=== PATIENT | female | born 1960 | race Caucasian/White ===

== ENCOUNTER → 2018-09-16 10:21 | Outpatient (CLI) | payer MEDICARE, MEDICAID, SELFPAY ==
--- NOTE | 2018-09-16 | DI.CT.S_ITS ---
PROCEDURE: CT CERVICAL SPINE WO CON INDICATIONS: OSTEOARTHRITIS OF SPINE WITH RADICULOPATHY CERVICAL TECHNIQUE: Noncontrast 3 mm thick sections acquired from the skull base to the T4 level. Sagittal and coronal reformats were then constructed. For radiation dose reduction, the following was used: automated exposure control, adjustment of mA and/or kV according to patient size. COMPARISON: [facility], RG, MRI C-SPINE W/O CONTRAST, 06/14/2003, 8:20. [facility], , CERVICAL SPINE INTERLAMINAR, 05/13/2018, 10:24. FINDINGS: Image quality: Excellent. There is straightening of normal cervical curvature. There is trace retrolisthesis of C4 on C5, trace anterolisthesis of C5 on C6. Moderate degenerative disc space narrowing is present C4-5, C5-6 and C6-7. Anterior osteophytes are present from C4-T2. No visualized fractures. Minimal disc bulge is present at C3-4, mild C4-C5, C5-6, C6-7. Mild to moderate spinal stenosis is present at C4-5, moderate at C5-6, mild to moderate C6-7. Minimal right and moderate left foraminal narrowing C3-4, moderate to severe bilateral C4-C5, mild to moderate bilateral C5-6, mild left and mild to moderate right C6-7. Uncovertebral hypertrophy is present. The right thyroid lobe demonstrates areas of low attenuation as well as calcification. No priors are available for comparison. IMPRESSION: 1. Multilevel disc space narrowing. 2. Multiple spinal stenosis most notable at C5-6 secondary to disc bulge. 3. Multilevel foraminal narrowing most prominent at C4-5 secondary to uncovertebral arthropathy. Dictated by: Rachel Hilliard M.D. on 09/16/2018 at 11:36 Approved by: Rachel Hilliard M.D. on 09/16/2018 at 11:49
== END ==
PROVIDERS: PCP Family Medicine; Visit Provider Orthopaedic Surgery Orthopaedic Surgery of the Spine
DX: M47.9 Spondylosis, unspecified (principal); M54.12 Radiculopathy, cervical region
CPT/HCPCS: 72125

== ENCOUNTER → 2018-10-06 14:52 | Outpatient (CLI) | payer MEDICARE, MEDICAID, SELFPAY ==
[2018-10-06 15:53] LABS: Add Manual Diff / Slide Review NO; Basophils Absolute Auto 0 /uL (0-100); Basophils Percent Auto 0.5 % (0-2); Eosinophils Absolute Auto 0 /uL (0-450); Eosinophils Percent Auto 0.7 % (2-4); Hematocrit 41.7 % (36-46); Hemoglobin 13.8 g/dL (12.0-16.0); Lymphocytes Absolute Auto 1300 /uL (1100-4500); Lymphocytes Percent Auto 23.6 % (25-40); Mean Corpuscular HGB Conc 33.2 % (30-36); Mean Corpuscular Hemoglobin 29.2 PG (26-34); Mean Corpuscular Volume 88.1 fL (80-100); Monocytes Absolute Auto 500 /uL (0-900); Monocytes Percent Auto 9.9 % (3-14); Neutrophils Absolute Auto 3500 /uL (1500-7000); Neutrophils Percent Auto 65.3 % (50-75); Platelet Count 288 X10^3/uL (150-400); Red Blood Cell Count 4.73 X10^6/uL (4.0-5.2); Red Cell Distribution Width 14.6 % (11.6-14.8); White Blood Cell Count 5.4 X10^3/uL (4.5-11.0)
[2018-10-06 17:07] LABS: Blood Urea Nitrogen 26 mg/dL (7-17); Carbon Dioxide 30 mmol/L (22-32); Chloride 98 mmol/L (98-107); Estimated Glomerular Filt Rate 42.2 mL/min (>60); Glucose 126 mg/dL (70-100); HEMOLYSIS < 15 (0-50); Potassium 4.3 mmol/L (3.4-5.1); Sodium 142 mmol/L (137-145)
== END ==
PROVIDERS: Family Provider Family Medicine; PCP Family Medicine; Visit Provider Orthopaedic Surgery Orthopaedic Surgery of the Spine
DX: Z01.818 Encounter for other preprocedural examination (principal); Z01.812 Encounter for preprocedural laboratory examination
CPT/HCPCS: 36415; 80048; 85025; 93005; 93010

== ENCOUNTER 2018-10-18 10:59 | Inpatient (IN) | payer MEDICARE, MEDICAID, SELFPAY ==
[2018-10-13 08:43] VITALS: BMI 45.1
[2018-10-18] VITALS (18 sets, daily range): BP systolic 130–156; BP diastolic 65–93; PULSE 76–95; RESP 7–18; TEMP 36.2–36.9; O2SAT 90–96; BMI 45.1
--- NOTE | 2018-10-18 | DI.RAD.S_ITS ---
PROCEDURE: XR CERVICAL SPINE 2V OR 3V INDICATIONS: C4-5 C5-6 .C6-7 ACDF TECHNIQUE: Multiple intraoperative fluoroscopic view(s) of the cervical spine were acquired. COMPARISON: None. FINDINGS: Bones: Multiple spot fluoroscopic images demonstrate anterior fusion and discectomy at C4-C6. IMPRESSION: ACDF from C4-C6. Dictated by: Bernie Cartagena M.D. on 10/18/2018 at 16:08 Approved by: Bernie Cartagena M.D. on 10/18/2018 at 16:09
[2018-10-18] MEDS: LACTATED RINGERS 1,000 ML 42 ML IV ×2 (12:18→15:08)
[2018-10-18] MEDS: CEFAZOLIN 2 GM/100 ML FROZ.PIGGY IV ×2 (13:08→21:35)
--- NOTE | 2018-10-18 14:02 | SUR.OPER ---
Supine, head on gel donut. Arms padded with gel pads, tucked at sides, towel roll under shoulders. Safety belt at thigh. Legs uncrossed. Pillow under knees. Cloth tape from bilateral shoulder to end of bed.
--- NOTE | 2018-10-18 15:57 | PM.OP.1 ---
Operative Date/Time/Diagnoses Date of procedure: 10/18/18 Time of procedure: 12:57 Pre-op diagnosis: 1. C4-5, C5-6 spinal stenosis 2. C4-5, C5-6 spondylosis with radiculopathy Post-op diagnosis: same Procedure & Clinicians Procedure: 1. C4-5, C5-6 anterior cervical diskectomy and fusion 2. C4-5, C5-6 anterior interbody cage placement 3. C4-5, C5-6 anterior instrumentation with plate and screw placement in C4, C5-C6 vertebrae 4. Utilization of microsurgical technique and operating microscope Same procedure as scheduled: Yes Indications: Patient has been having chronic neck pain and worsening cervical radiculopathy. Patient failed multiple conservative management with worsening pain weakness and numbness in her upper extremity. Patient has been having difficulty performing activity of daily living. After discussing risks benefits of treatment options, patient elected proceed with surgery. Surgeon: Eleazar Lester Explosive Ordnance Manager: Caity Guerrero'Brien Click Yes if Unassisted: No Anesthesia Type: General Operative Notes Closure Type: primary Specimen(s): none sent Implants & Drains: GLobus extend plate, Peek cage Applied: catheter Estimated Blood Loss (mL): 10 Blood products transfused: none Procedure in detail: Patient was seen in the preoperative area. Risks and benefits of the surgery was discussed with the patient. Operative consent was obtained and placed in the chart. Patient was then taken to the operative room. Prophylactic antibiotic was given less than 0.5 hr prior to skin incision. General anesthesia was administered. Patient was placed into a supine position on her radiolucent table. Bilateral shoulders were taped down to allow proper C-arm imaging. Anterior cervical area was prepped and draped in a sterile fashion. Time-out was performed at this time. Using lateral C-arm imaging, the level between C4 and C6 was identified and marked on patient's neck. A oblique incision from midline towards medial border of sternocleidomastoid muscle was made. The platysma muscle was incised in line with skin incision. Metzenbaum scissor was used to develop the plane between the medial border of sternocleidomastoid d and the strap muscles medially. The carotid sheath and its contents were identified and protected behind the hand-held retractor during the entire case. The plane between the carotid sheath and strap muscles was developed with Metzenbaum scissors. Dissection was made down to the level of the anterior cervical fascia. Longus colli muscle was incised on the anterior aspect of vertebral bodies bilaterally from C4-6. Spinal needle was placed into the C5-6 disc space and confirmed with lateral C-arm imaging. Using microsurgical technique and operative microscope, anterior cervical diskectomy was performed at C4-5 and C5-6 level. This was done by removing the disc material, removing the anterior and posterior osteophytes posterior longitudinal ligaments along with performing bilateral foraminotomies at both levels. Patient was found to have severe central and foraminal stenosis at both levels. Patient's stenosis was fully decompressed after decompression was completed. After the diskectomy was completed, 2 anterior interbody cages were obtained. The cages were packed with globus via cell bone grafting material. One cage each along with the bone grafting material was then packed into the interbody spaces from C4-5, C5-6 with one cage into each interbody level. After the cages were placed, the anterior cervical plate was stabilized to the C4-C6 vertebrae using 2 screws at each each level. Total 6 screws were placed. After confirming placement of the hardware with AP and lateral C-arm imaging, the screws were locked into the plate using the locking mechanism and torque limiting screwdriver. After the hardware was placed and confirmed with AP and lateral C-arm imaging, the wound was irrigated with sterile normal saline. The platysma muscle and the subcutaneous tissue was closed with 2-0 Vicryl. The skin was closed with 4-0 Monocryl and Steri-Strips. Patient tolerated the procedure well. Patient was transferred recovery room in stable condition. There were no complications. Complications: none Condition: stable Disposition: PACU Plan for aftercare: Admit to inpatient hospital
[2018-10-18] MEDS: HYDROMORPHONE 2 MG INJ 0.5 MG IV ×2 (16:18→16:37)
[2018-10-18] MEDS: OXYCODONE IR 5 MG TABLET PO (16:42)
[2018-10-18] MEDS: SODIUM CHLORIDE 0.9% 1,000 ML 100 ML IV (17:55)
--- NOTE | 2018-10-18 18:59 | PC.NURSE ---
Kasandra shift note: 1705: Patient admitted to AC room 220 from PACU S/P ACDF by Dr. Lester. Patient awake, alert, and pleasant. Soft cervical collar in place, 4 x 4 dressing to left anterior neck CDI, secured with tegaderm. No c/o pain, ice pack to anterior neck. SCDs in place. Cont. on O2 per NC at 2L, 93%. Tolerating regular diet, no N/V. Daughter at bedside providing supportive care. Patient with left sided weakness which is baseline from MS. Good hand dog or animal sitter. Mild numbness to left fingertips, improving. Oriented to room, environment, and plan of care. Call light within reach.
[2018-10-18] MEDS: DOCUSATE 100 MG CAPSULE PO (21:34)
[2018-10-18] MEDS: FUROSEMIDE 20 MG TABLET PO (21:34)
[2018-10-18] MEDS: TRAZODONE 100 MG TABLET PO (21:34)
[2018-10-18] MEDS: SENNOSIDES 8.6 MG TABLET 17.2 MG PO (21:35)
[2018-10-19 03:15] VITALS: BP 141/84; PULSE 94; RESP 18; TEMP 36.7; O2SAT 92
[2018-10-19] MEDS: SODIUM CHLORIDE 0.9% 1,000 ML 100 ML IV (04:19)
[2018-10-19] MEDS: CEFAZOLIN 2 GM/100 ML FROZ.PIGGY IV (05:04)
[2018-10-19] MEDS: LEVOTHYROXINE 100 MCG TABLET PO (05:17)
[2018-10-19] MEDS: LEVOTHYROXINE 75 MCG TABLET PO (05:17)
[2018-10-19 05:51] LABS: Hematocrit 38.8 % (36-46)
[2018-10-19 08:00] VITALS: BP 145/83; PULSE 91; RESP 16; TEMP 36.6; O2SAT 97
--- NOTE | 2018-10-19 08:04 | PC.NURSE ---
Addendum entered by Abby Natarajan R.N. 10/19/18 12:41: dc - after arias dc'd this am, pt voided 400ml at lunch, cleared by phys therapy, bernabe dc'd, reviewed dc instructions with pt and dtr, script provided, packed belongings, including bag, glasses, clothing and own fww, trsf to wc and therapist occupational escorted to dtr's car. Original Note: Addendum entered by Abby Natarajan R.N. 10/19/18 10:37: PAIN/MS/ - given 650mg po tylenol after breakfast, up with phys therapy, states no dizziness, discussed plan to dc later today, arias balloon deflated and dc'd w/o difficulty, hat in br, call light available. Original Note: AM NOTE - awake, states mild discomfort, 1 on scale 0/10, l neck dsg cdi, wearing soft cervical collar, 02 sat 93% ra, cpap off, hr 84, denies nausea, + bt, hx numbness hands has improved, some residual numbness r hand w/slightly weaker service center specialist, arias w/clear, yellow urine, plan to mobilize this am with phys and occ therapy
--- NOTE | 2018-10-19 08:07 | PM.DS.1 ---
History of Present Illness Date Patient Seen: 10/19/18 Time Patient Seen: 08:08 Chief complaint: [id number] Narrative: Hospital day 2, postop day 1 following C4-5, C5-6 ACDF, cage, anterior plate by Dr. Lester. Patient states she is doing well. Has had minimal discomfort. Her preoperative left arm numbness and weakness has been improving since surgery. She notes some slight numbness to the tip of her left fingers. No significant swallowing problem. She has not been out of bed yet. No PT yet. Does have Mcclellan catheter in place. Discharge Providers Date of admission: 10/18/18 10:59 Primary care physician: Alec Colmenares MD Consults: 10/18/18 17:33 Consult to Occupational Therapy Evaluate & Treat Comment: Physician Instructions: Evaluate and treat Consult to Physical Therapy Evaluate & Treat Comment: Physician Instructions: Evaluate and Treat Discharge provider: Huseyin Vance PA-C Discharge Date: 10/19/18 Summary Discharge Diagnosis: 1. Status post C4-5, C5-6 ACDF, cage, anterior plate. 2. Morbid obesity Hospital Course: Patient brought to hospital on 10/18/2018 for above noted surgery. She remained stable postoperatively. Had noticeable improvement in neck pain and left arm symptoms on postop day 1. Ready for discharge home on postop day 1. Status at Discharge Cognitive/behavioral status at discharge: Alert, oriented no acute distress Functional status at discharge: uses cane/walker Overall status at discharge: patient is progressing back to baseline Time Spent with Patient Less than 30 minutes Exam Vital Signs (past 8 hours): - 10/19/18 03:15 Temperature 98.1 F Pulse Rate 94 H Respiratory Rate 18 Blood Pressure 141/84 H Pulse Oximetry 92 Oxygen Delivery Method CPAP Oxygen Flow Rate 0 Narrative Exam Narrative: Neck. Soft collar in place. Dressing to left anterior neck is dry without drainage or inflammation. Arms. Agricultural Mechanic strong and equal. Pulses and sensation symmetrical. Elbow flexion, extension and shoulder AB duction strong and equal. Objective Labs Result Diagrams: 10/19/18 05:10 Labs: Laboratory Results - last 24 hr 10/19/18 05:10 Hgb 13.0 Hct 38.8 Discharge Plan Discharge Plan Patient Disposition: Home Discharge comment: Discharged home today after Mcclellan catheter DC patient able to void and patient cleared by PT. Discharge Med Rec/Prescriptions Prescriptions: New acetaminophen 325 mg Tablet 650 mg PO Q6HR PRN (Reason: Pain, Mild (1-3)) Qty: 30 RF: 0 hydrocodone-acetaminophen [[place]] 5-325 mg tablet 1 tab PO Q4-6H PRN (Reason: pain) Qty: 30 RF: 0 Continue multivitamin [Multiple Vitamins] 1 EACH tablet 1 tab PO QDAY Qty: 0 RF: 0 levothyroxine 175 mcg Tablet 175 mcg PO DAILY Qty: 0 RF: 0 VITAMIN B COMPLEX ([id number]) 1 cap PO Q DAY Qty: 0 RF: 0 cholecalciferol (vitamin D3) 5,000 UNIT capsule 5,000 unit PO QDAY Qty: 0 RF: 0 [FISH OIL] 1 cap PO QDAY Qty: 0 RF: 0 [PROBIOTIC] 1 tab PO QDAY Qty: 0 RF: 0 lisinopril 20 MG tablet 20 mg PO QAM Qty: 0 RF: 0 metoprolol succinate 50 MG tablet extended release 24 hr 50 mg PO QAM Qty: 0 RF: 0 trazodone 100 MG tablet 100 mg PO HS Qty: 30 RF: 0 diclofenac sodium 75 mg Tablet,Delayed Release (Dr/Ec) 75 mg PO BID RF: 0 furosemide 20 mg Tablet 20 mg PO TID RF: 0 albuterol sulfate 90 mcg/actuation Hfa Aerosol Inhaler 2 puff INHALATION Q6H PRN (Reason: sob) RF: 0 bupropion HCl 300 mg Tablet Extended Release 24 Hr 300 mg PO QAM RF: 0 diazepam 10 MG tablet 10 mg PO Q6HP PRN (Reason: Anxiety, CT scan/MRI) RF: 0 Provider Discharge Instructions Diet: Diet as Tolerated Activity: Ambulate as tolerated. Keep soft cervical collar on through the end of the week. Skin/Wound/Dressing Care Report to your healthcare provider any signs of infection, such as:: chills, fever, night sweats, increased pain, unusual drainage and unusual redness Discharge Data Primary Care Provider: Alec Colmenares Attending Provider: Eleazar Lester Admit Date/Time: 10/18/18 10:59
--- NOTE | 2018-10-19 08:12 | P.DS_ITS ---
History of Present Illness Date Patient Seen: 10/19/18 Time Patient Seen: 08:08 Chief complaint: [id number] Narrative: Hospital day 2, postop day 1 following C4-5, C5-6 ACDF, cage, anterior plate by Dr. Lester. Patient states she is doing well. Has had minimal discomfort. Her preoperative left arm numbness and weakness has been improving since surgery. She notes some slight numbness to the tip of her left fingers. No significant swallowing problem. She has not been out of bed yet. No PT yet. Does have Mcclellan catheter in place. Discharge Providers Date of admission: 10/18/18 10:59 Primary care physician: Alec Colmenares MD Consults: 10/18/18 17:33 Consult to Occupational Therapy Evaluate & Treat Comment: Physician Instructions: Evaluate and treat Consult to Physical Therapy Evaluate & Treat Comment: Physician Instructions: Evaluate and Treat Discharge provider: Huseyin Vance PA-C Discharge Date: 10/19/18 Summary Discharge Diagnosis: 1. Status post C4-5, C5-6 ACDF, cage, anterior plate. 2. Morbid obesity Hospital Course: Patient brought to hospital on 10/18/2018 for above noted surgery. She remained stable postoperatively. Had noticeable improvement in neck pain and left arm symptoms on postop day 1. Ready for discharge home on postop day 1. Status at Discharge Cognitive/behavioral status at discharge: Alert, oriented no acute distress Functional status at discharge: uses cane/walker Overall status at discharge: patient is progressing back to baseline Time Spent with Patient Less than 30 minutes Exam Vital Signs (past 8 hours): - 10/19/18 03:15 Temperature 98.1 F Pulse Rate 94 H Respiratory Rate 18 Blood Pressure 141/84 H Pulse Oximetry 92 Oxygen Delivery Method CPAP Oxygen Flow Rate 0 Narrative Exam Narrative: Neck. Soft collar in place. Dressing to left anterior neck is dry without drainage or inflammation. Arms. Identification Technician strong and equal. Pulses and sensation symmetrical. Elbow flexion, extension and shoulder AB duction strong and equal. Objective Labs Result Diagrams: 10/19/18 05:10 Labs: Laboratory Results - last 24 hr 10/19/18 05:10 Hgb 13.0 Hct 38.8 Discharge Plan Discharge Plan Patient Disposition: Home Discharge comment: Discharged home today after Mcclellan catheter DC patient able to void and patient cleared by PT. Discharge Med Rec/Prescriptions Prescriptions: New acetaminophen 325 mg Tablet 650 mg PO Q6HR PRN (Reason: Pain, Mild (1-3)) Qty: 30 RF: 0 hydrocodone-acetaminophen [[place]] 5-325 mg tablet 1 tab PO Q4-6H PRN (Reason: pain) Qty: 30 RF: 0 Continue multivitamin [Multiple Vitamins] 1 EACH tablet 1 tab PO QDAY Qty: 0 RF: 0 levothyroxine 175 mcg Tablet 175 mcg PO DAILY Qty: 0 RF: 0 VITAMIN B COMPLEX ([id number]) 1 cap PO Q DAY Qty: 0 RF: 0 cholecalciferol (vitamin D3) 5,000 UNIT capsule 5,000 unit PO QDAY Qty: 0 RF: 0 [FISH OIL] 1 cap PO QDAY Qty: 0 RF: 0 [PROBIOTIC] 1 tab PO QDAY Qty: 0 RF: 0 lisinopril 20 MG tablet 20 mg PO QAM Qty: 0 RF: 0 metoprolol succinate 50 MG tablet extended release 24 hr 50 mg PO QAM Qty: 0 RF: 0 trazodone 100 MG tablet 100 mg PO HS Qty: 30 RF: 0 diclofenac sodium 75 mg Tablet,Delayed Release (Dr/Ec) 75 mg PO BID RF: 0 furosemide 20 mg Tablet 20 mg PO TID RF: 0 albuterol sulfate 90 mcg/actuation Hfa Aerosol Inhaler 2 puff INHALATION Q6H PRN (Reason: sob) RF: 0 bupropion HCl 300 mg Tablet Extended Release 24 Hr 300 mg PO QAM RF: 0 diazepam 10 MG tablet 10 mg PO Q6HP PRN (Reason: Anxiety, CT scan/MRI) RF: 0 Provider Discharge Instructions Diet: Diet as Tolerated Activity: Ambulate as tolerated. Keep soft cervical collar on through the end of the week. Skin/Wound/Dressing Care Report to your healthcare provider any signs of infection, such as:: chills, fever, night sweats, increased pain, unusual drainage and unusual redness Discharge Data Primary Care Provider: Alec Colmenares Attending Provider: Eleazar Lester Admit Date/Time: 10/18/18 10:59
[2018-10-19] MEDS: DOCUSATE 100 MG CAPSULE PO (09:08)
[2018-10-19] MEDS: FUROSEMIDE 20 MG TABLET PO (09:08)
[2018-10-19] MEDS: buPROPion XL 150 MG TAB 300 MG PO (09:08)
[2018-10-19] MEDS: ACETAMINOPHEN 325 MG TABLET 650 MG PO (09:09)
[2018-10-19] MEDS: METOPROLOL ER 50 MG TABLET PO (09:09)
[2018-10-19] MEDS: MULTIVITAMIN 1 TABLET 1 TAB PO (09:09)
[2018-10-19] MEDS: LISINOPRIL 20 MG TABLET PO (09:09)
--- NOTE | 2018-10-19 09:13 | OT.IP.EVAL ---
Current Diagnoses Spondylolisthesis, cervical region (10/18/18) Other spondylosis with radiculopathy, cervical region (10/18/18) Spinal stenosis, cervical region (10/18/18) Surgery Performed Operation Date: 10/18/18 13:15 Actual Procedures p C4-5,C5-6 ACDF w/Anterior Instru. - Eleazar Lester MD Past Medical History (Last Updated 10/13/18 @ 09:45 by Mitzy Daniels, RN) Chronic neck and back pain (Acute) DDD (degenerative disc disease) (Acute) Double vision (Acute) Easy bruisability (Acute) Eye muscle paralysis (Acute) Former smoker (Acute) GERD (gastroesophageal reflux disease) (Acute) HTN (hypertension) (Acute) Hypothyroid (Acute) Kidney stone (Acute) Mass of left thigh (Acute) Migraines (Acute) Numbness and tingling in both hands (Acute) Numbness and tingling of both feet (Acute) Right foot drop (Acute) Right shoulder pain (Acute) Risk for falls (Acute) FAHAD (stress urinary incontinence, female) (Acute) Sleep apnea treated with nocturnal BiPAP (Acute) Surgical History (Last Updated 10/13/18 @ 09:45 by Mitzy Daniels, JACY) History of lumbar spinal fusion (Acute 01/09/18) Hx of dilation and curettage (Acute) Hx of foot surgery (Acute) Hx of gastric bypass (Acute ~2002) Hx of hernia repair (Acute) Hx of laminectomy (Acute ~1987) Hx of shoulder surgery (Acute) Hx of total hysterectomy (Acute) Occupational Therapy Inpatient Evaluation/Re-Eval M1 PT/OT-IP Prior Functional Status Start: 10/19/18 14:43 Freq: NEEDED Status: Active Protocol: Document 10/19/18 09:13 RENARD (Rec: 10/19/18 16:48 PJM [id number]) Medical Review Prior Functional Status Medical History Reviewed Yes Diet/Fluid Consistency Regular Communication WNL Mobility and Gait Pt stated that she is modified independent with all mobilities and ambulation using 4WW. Activities of Daily Living and IADL's Pt lives alone and is independent with basic self care. Her daughter lives next door and assists pt with grocery shopping, scientific advisor and most driving. Pt uses electric cart in grocery store. Prior Functional Level (Other details) Pt has friends who can also assist PRN. Social History Household Members none Living Arrangements House Number of Floors (Floors) One Floor Number of Stairs To Enter/Railing? ramp to enter Home Environment Standard Height Toilet Walk in Shower Ramp Home Equipment Four Wheel Walker Raised Toilet Seat Without Armrests Shower Seat without Backrest Long Handled Sponge Long Handled Shoe Horn Education Coordinator Sock Aid Lift Recliner Grab Bars In Shower Additional Social History Comment Pt is on disability due to MS. Pt also has dressing stick. Pt stands to shower due to very small shower stall. M2 OT-IP Current Condition Start: 10/19/18 14:43 Freq: Status: Active Protocol: Document 10/19/18 09:13 PJM (Rec: 10/19/18 16:48 PJM [id number]) Occupational Therapy Current Condition Current Condition Evaluation Date 10/19/18 Treatment Diagnosis decreased self care s/p C4-6 ACDF Diagnosis Onset Date 10/18/18 Post Operative Precautions Cervical Spine Precautions Soft Collar for Comfort Soft Collar at all Times Rigid Collar No Heavy Lifting Log Roll M3 OT- IP Subjective and Pain Start: 10/19/18 14:43 Freq: Status: Active Protocol: Document 10/19/18 09:13 PJM (Rec: 10/19/18 16:48 PJ [id number]) OT- Subjective Occupational Therapy Visit Type Type Initial Evaluation Visit Start Time 08:40 Visit Stop Time 09:13 Notes Pt familiar with adapted self care techniques and lower body dressing equipt from previous back surgery with SNF stay. Occupational Therapy Visit Comments Patient Comments I feet great. When can I get my catheter out so I can go home? Patient/Caregiver Goals to go home today, to have improved sensation and strength in L hand OT Pain Assessment Pain When Pain Assessed After Treatment Pain Present Pain Present Denied Pain M4 OT- IP ADL's Start: 10/19/18 14:43 Freq: Status: Active Protocol: Document 10/19/18 09:13 PJM (Rec: 10/19/18 16:48 PJM [id number]) OT [id number] General Evaluation Self-Feeding Ability Independent Comments OT Self-Feeding Comments pt denies swallowing deficits OT ADL-Grooming General Evaluation Grooming Ability Independent Comments OT Grooming Comments standing at sink with 4WW after education re: body mechanics OT ADL-Oral Care General Eval Oral Care Ability Independent Comments Oral Care Comments standing at sink with 4WW after education re: body mechanics OT ADL-Dressing General Eval Upper Body Dressing Ability Independent Lower Body Dressing Ability Independent Areas Needing Assistance Pull-Over Shirt Underpants/Brief Pants/Shorts Socks Shoes Assistive Devices Dressing Assistive Devices Dressing Stick Long Handled Shoe Horn Education Coordinator Sock Aid Velcro Comments OT Dressing Comments Pt familiar with lower body dressing techniques and has all necessary AED from previous rehab stay. Pt wears knee high compression sock on R LE OT ADL-Toileting General Evaluation Toileting Ability Independent OT ADL-Bathing Comments OT Bathing Comments pt declines to shower here; she plans to sponge bath and use shampoo caps she purchased on line until first post op MD visit M5 OT- IP IADL's Start: 10/19/18 14:43 Freq: Status: Active Protocol: Document 10/19/18 09:13 PJM (Rec: 10/19/18 16:48 PJ [id number]) OT-Instrumental Activities of Daily Living Deficits IADL Deficits Identified Deficits Home Safety Awareness Awareness of Need for Assistance at Home Good Awareness Ability to Problem Solve Emergency Able to Problem Solve Situations Medication Management Medication Management No Deficits Identified Money Management Money Management No Deficits Identified Meal Preparation Meal Preparation Caregiver Provides Assist Meal Preparation Comments Daughter can assist PRN, but pt prepared frozen meals prior to surgery Director Multimedia Director Multimedia Caregiver Provides Assist Director Multimedia Comments daughter to assist PRN Driving Driving Comments daughter to assist PRN M6 OT- IP Functional Cognition Start: 10/19/18 14:43 Freq: Status: Active Protocol: Document 10/19/18 09:13 PJM (Rec: 10/19/18 16:48 PJ [id number]) Cognitive Factors Limiting Selfcare Function Cognitive Ability Level of Alertness Alert Patient Orientation Name Age Birthday Month Date Year Day of Week Place Situation Attention Span Ability Capable of Focused Attention Capable of Sustained Attention Ability to Follow Commands Able to Follow One Step Commands Able to Follow Multi-Step Commands Memory Description No Deficits Noted Safety Awareness No Deficits Noted Problem Solving Ability No deficits Noted Executive Function Ability No Deficits Noted OT- Vision and Hearing OT- Hearing Assessment OT- Hearing Assessment WFL OT- Vision Assessment Visual Acuity WFL Glasses All The Time Vision Assessment Comments Pt denies any recent vision changes. M7 OT- IP Mobility and Balance Start: 10/19/18 14:43 Freq: Status: Active Protocol: Document 10/19/18 09:13 PJM (Rec: 10/19/18 16:48 PJ [id number]) OT- Bed Mobility Assessment Rolling Level of Assistance Standby Assistance Supine to Sit Supine to Sit Assist Minimal Assistance Scooting Scooting to Edge of Bed Independent OT-Transfer Assessment Sit to and From Stand Sit to and from Stand Standby Assistance 1 Person Assistance Transfers Transfer Ability Standby Assistance 1 Person Assistance Technique Transfer Destination Chair Devices Transfer Assistive Devices Gait Belt 4 Wheeled Walker Comments Mobility Comments Pt plans to sleep in recliner initially. Note she has bed rail on her bed at home. OT- Gait Assessment Comments Gait Ability Comments see P.T. notes OT- Balance Assessment Sitting Balance and Reactions Static Sitting Balance Ability Good Dynamic Sitting Balance Ability Good Standing Balance and Reactions Static Standing Balance Ability Good Dynamic Standing Balance Ability Good M8 OT- IP Objective Assessments Start: 10/19/18 14:43 Freq: Status: Active Protocol: Document 10/19/18 09:13 PJM (Rec: 10/19/18 16:48 PJ [id number]) OT Gross Range of Motion Upper Extremity Range of Motion Assessment Within Functional Limits OT Strength Upper Extremity Strength Assessment Within Functional Limits Hand Delinquent Tax Collector Assistant Strength Hand Dominance Right Comments Strength Comments Pt feels B hands are stronger since surgery. OT- Coordination Assessment Comments Coordination Comments BUE WFL OT-Muscle Tone Assessment Muscle Tone WNL Yes OT Sensation Assessment Comments Summary Comments Pt has had long standing L hand numbness which has improved since surgery per pt. M9 OT- IP Assessment and Plan Start: 10/19/18 14:43 Freq: Status: Active Protocol: Document 10/19/18 09:13 PJM (Rec: 10/19/18 16:48 [facility] [id number]) OT Summary Assessment and Plan Potential Rehabilitation Potential Good Analytic Complexity at Evaluation Low Summary Progress Towards Goals Safe For Discharge Goals Met Assessment Summary Low complexity OT assessment and all OT education completed in one visit re: C spine precautions, adapted ADL techniques and car transfers. Pt has no c/o pain today and appears close to baseline level of function with adapted self care skills. She is having min difficulty getting out of unfamiliar bed here, but plans to sleep in recliner at home. Anticipate pt will d/c home today with intermittent assist from daughter and friends when medically stable and clears P.T. Goals Grooming Goal Independent Dressing Goal Independent Dressing Stick Elastic Shoe Laces Long Handled Shoe Horn Education Coordinator Sock Aid Velcro Toileting Goal Independent Toilet Transfer Goal Independent Patient/Caregiver Education Goal Demonstrate Post-Op Precautions Days to Meet Goals 1 Frequency of Treatment Frequency Of Treatment Discharge Treatment Plan Other Treatment Recommendations and Next No further OT services needed Treatment Focus Discharge Recommendations OT Discharge Recommendations Home with Assistance Home Equipment Needs none
--- NOTE | 2018-10-19 10:13 | PT.IIE ---
Current Diagnoses Spondylolisthesis, cervical region (10/18/18) Other spondylosis with radiculopathy, cervical region (10/18/18) Spinal stenosis, cervical region (10/18/18) Surgery Performed Operation Date: 10/18/18 13:15 Actual Procedures p C4-5,C5-6 ACDF w/Anterior Instru. - Eleazar Lester MD Surgical History (Last Updated 10/13/18 @ 09:45 by Mitzy Daniels, RN) History of lumbar spinal fusion (Acute 01/09/18) Hx of dilation and curettage (Acute) Hx of foot surgery (Acute) Hx of gastric bypass (Acute ~2002) Hx of hernia repair (Acute) Hx of laminectomy (Acute ~1987) Hx of shoulder surgery (Acute) Hx of total hysterectomy (Acute) Medical History (Last Updated 10/13/18 @ 09:45 by Mitzy Daniels RN) Chronic neck and back pain (Acute) DDD (degenerative disc disease) (Acute) Double vision (Acute) Easy bruisability (Acute) Eye muscle paralysis (Acute) Former smoker (Acute) GERD (gastroesophageal reflux disease) (Acute) HTN (hypertension) (Acute) Hypothyroid (Acute) Kidney stone (Acute) Mass of left thigh (Acute) Migraines (Acute) Numbness and tingling in both hands (Acute) Numbness and tingling of both feet (Acute) Right foot drop (Acute) Right shoulder pain (Acute) Risk for falls (Acute) FAHAD (stress urinary incontinence, female) (Acute) Sleep apnea treated with nocturnal BiPAP (Acute) Physical Therapy Inpatient Evaluation/Re-Eval M1 PT/OT-IP Prior Functional Status Start: 10/19/18 12:41 Freq: NEEDED Status: Active Protocol: Document 10/19/18 10:13 AB (Rec: 10/19/18 12:51 AB [id number]) Medical Review Prior Functional Status Medical History Reviewed Yes Communication able to make needs known Mobility and Gait stated that she is modified independent with all mobilities and ambulation using 4WW Social History Household Members none Living Arrangements House Number of Floors (Floors) One Floor Number of Stairs To Enter/Railing? has a ramp to enter Home Environment High Toilet Home Equipment Four Wheel Walker Raised Toilet Seat Without Armrests Grab Bars In Shower Additional Social History Comment pt will have her daughter to assist her. daughter lives next door to her. pt has a warehouse and receiving supervisor shower and plans to just do sponge bathing at home until incision heals. Pt has a regular bed with rail on L side of bed M2 PT-IP Current Condition Start: 10/19/18 12:41 Freq: NEEDED Status: Active Protocol: Document 10/19/18 10:13 AB (Rec: 10/19/18 12:51 AB [id number]) Physical Therapy Current Condition Current Condition Evaluation Date 10/19/18 Treatment Diagnosis C4-5, 5-6 ACDF Onset Date 10/18/18 Precautions Cervical Spine Precautions Soft Collar for Comfort No Heavy Lifting Log Roll M3 PT-IP Subjective Start: 10/19/18 12:41 Freq: NEEDED Status: Active Protocol: Document 10/19/18 10:13 AB (Rec: 10/19/18 12:51 AB [id number]) Subjective Physical Therapy Visit Type Type Initial Evaluation Visit Start Time 10:13 Visit Stop Time 10:33 Total Visit Minutes 20 Number of STERILE TECH Visits 0 Physical Therapy Visit Comments Patient Comments pt stated that she is ready to go home Therapy Pain Assessment Pain When Pain Assessed At Rest Pain Present Pain Present Pain Reported Location Neck Intensity 2 Scale Used Numeric (1 - 10) Pain Management Techniques Timing of Activity with Medications M4 PT-IP Mobility and Gait Start: 10/19/18 12:41 Freq: NEEDED Status: Active Protocol: Document 10/19/18 10:13 AB (Rec: 10/19/18 12:51 AB [id number]) PT-Bed Mobility Assessment Rolling Type of Rolling Log Rolling Level of Assist Standby Assistance Supine to Sit Supine to Sit Standby Assistance Bedrails Sit to Supine Sit to Supine Standby Assistance Bedrails Scooting Scooting to Edge of Bed Standby Assistance PT-Transfer Assessment Sit to and From Stand Sit to and from Stand Standby Assistance 1 Person Assistance Use of Upper Extremities Equipment Transfer Assistive Device Gait Belt 4 Wheeled Walker Orthotic/Prosthetic Devices or Brace: Yes Transfers Transfer Destination Bed Transfer Technique Stand Step Pivot Transfer Ability Level of Assist Standby Assistance Use of Upper Extremities Gait Assessment Gait Gait Assistance Required: Standby Assistance Distance (Feet) 200 Able to Maintain Weight Bearing Status Yes During Gait Assistive Devices Assistive Device Gait Belt 4 Wheeled Walker Orthotic/Prosthetic Devices or Brace: No Gait Deviations General Gait Pattern Ataxic Decreased Stride Length Decreased Feet Clearance Wide Based Gait Factors Limiting Gait Function Factors Limiting Gait Function Decreased Activity Tolerance Decreased Strength Pain Poor Balance Poor Safety Awareness Comments Gait Comments pt has MS affecting standing balance and ambulation. pt with (+) L knee hyperextension PT-Balance Assessment Sitting Balance and Reactions Static Sitting Balance Ability Good Dynamic Sitting Balance Ability Good Standing Balance and Reactions Static Standing Balance Ability Fair Dynamic Standing Balance Ability Fair Device Used 4WW M5 PT-IP Objective Assessments Start: 10/19/18 12:41 Freq: NEEDED Status: Active Protocol: Document 10/19/18 10:13 AB (Rec: 10/19/18 12:51 AB [id number]) Orientation Orientation/Cognition Level of Alertness Alert Orientation Name Age Birthday Month Date Year Day of Week Place Situation Language Function Ability No Deficits Noted Safety Awareness Understands Safety Issues Gross Range of Motion Lower Extremity ROM Assessment Within Functional Limits Strength Lower Extremity Strength Assessment Bilaterally Impaired Knee 4-/5 M6 PT-IP Treatment Start: 10/19/18 12:41 Freq: NEEDED Status: Active Protocol: Document 10/19/18 10:13 AB (Rec: 10/19/18 12:51 AB [id number]) Physical Therapy Treatment Education Education Provided Safety Brace Education [place] Patient Caregiver Other Treatments Other Treatment Performed educated pt on management of soft collar and completed pt and caregiver training for collar management M7 PT-IP Assessment and Plan Start: 10/19/18 12:41 Freq: NEEDED Status: Active Protocol: Document 10/19/18 10:13 AB (Rec: 10/19/18 12:51 AB [id number]) PT Summary Assessment and Plan Potential Rehabilitation Potential Good Status of Condition at Evaluation Stable Summary Impairments Pain ROM Strength Balance Coordination Sensation Tone Cognition Bed Mobility Transfers Gait Activity Tolerance Assessment Summary pt requiring SBA with mobility and plans to go home with her daughter to assist her at home. Goals Bed Mobility Goal Independent Transfer Goal Independent Four Wheeled Walker Gait Goal Independent Four Wheel Walker Gait Distance 300 Days to Meet Goals 3 Frequency of Treatment Frequency Of Treatment Twice a Day Treatment Plan Physical Therapy Treatment Plan Bed Mobility Training Transfer Training Gait Training Therapeutic Exercise Balance Retraining Post Op Education Discharge Planning Hot or Cold Pack Neuromuscular Re-ed Coordination Retraining Manual Therapy Other Recommendations and Next Treatment ambulation Focus Recommendations To Nursing Amount of Assist Needed Standby Assistance Discharge Recommendations PT Discharge Recommendations Home with Assistance
[2018-10-19 12:00] VITALS: BP 137/73; PULSE 76; RESP 16; TEMP 36.7; O2SAT 95
== END 2018-10-19 12:50 | disposition home or self-care (01) | DRG 472 ==
PROVIDERS: Admitting Provider Orthopaedic Surgery Orthopaedic Surgery of the Spine; Family Provider Family Medicine; PCP Family Medicine; Visit Provider Orthopaedic Surgery Orthopaedic Surgery of the Spine
PROC: 0RG20A0 Fusion of 2 or more Cervical Vertebral Joints with Interbody Fusion Device, Anterior Approach, Anterior Column, Open Approach (ICD-10-PCS; principal; 2018-10-18 13:15)
DX: M48.02 Spinal stenosis, cervical region (principal); Z68.42 Body mass index [BMI] 45.0-49.9, adult; M47.22 Other spondylosis with radiculopathy, cervical region; M43.12 Spondylolisthesis, cervical region; G35 Multiple sclerosis; I10 Essential (primary) hypertension; F32.9 Major depressive disorder, single episode, unspecified; Z87.891 Personal history of nicotine dependence; E66.01 Morbid (severe) obesity due to excess calories
CPT/HCPCS: 36415; 72040; 76000; 85014; 85018; 94760; 97161; 97165; 97535; C1776; J0690; J1100; J1170; J2405; J2704; J3010